=== PATIENT | male | born 1995 | race Caucasian/White ===

== ENCOUNTER 2017-01-11 15:14 | Emergency (ER) | payer OTHER ==
[~2017-01-11] VITALS: Ht 180.3 cm; Wt 104.5 kg
[2017-01-11 15:15] VITALS: BP 151/75
[2017-01-11] MEDS ORDERED: IBUP-1022 PO ×2 (16:22→16:26)
== END 2017-01-11 16:35 | disposition home or self-care (01) ==
LOC: M ED 15:14
DX: S43.402A Unspecified sprain of left shoulder joint, initial encounter (principal); X50.0XXA Overexertion from strenuous movement or load, initial encounter; Y92.018 Other place in single-family (private) house as the place of occurrence of the external cause; Y93.89 Activity, other specified; Y99.8 Other external cause status